=== PATIENT | male | born 1975 | race Caucasian/White ===

== ENCOUNTER 2025-04-20 10:24 | Emergency (ER) | payer MEDICAID, SELFPAY ==
[2025-04-20 10:25] VITALS: BMI 43.8
[2025-04-20 11:12] VITALS: BP 148/77; PULSE 84; RESP 17; TEMP 36.8; O2SAT 99
--- NOTE | 2025-04-20 11:23 | XR_ITS ---
EXAMINATION: Left ankle 2 views TECHNIQUE: AP lateral left ankle 2 views Date and time: April 20, 2025, 11:33 a.m. INDICATIONS: Left ankle injury 10 years ago persistent pain FINDINGS: Moderate osteoarthritis tibiotalar joint No acute fracture Ossification in the Achilles insertion 4 mm plantar bony calcaneal spur Moderate osteoarthritis tarsal joints IMPRESSION: Moderate osteoarthritis No acute fracture
--- NOTE | 2025-04-20 11:24 | EDNOTE_ITS ---
ED Extremity Problem RME/HPI General Chief complaint: Extremity Problem,Nontraumatic Stated complaint: LEFT LEG SWELLING AND PAIN, SENT FOR ULTRASOUND Time Seen by Provider: 04/20/25 11:12 Arrival date/time: 04/20/25 10:24 50-year-old male patient with significant history of peripheral arterial disease, was sent to us by PCP for evaluation regarding request for ultrasound bilateral lower extremity to rule out arterial occlusion and rule out DVT. Patient was seen by PCP 2 days ago, and no further workup was done. Patient is pending referral to specialist. According to the patient it takes forever for him to get an ultrasound to the lower extremity. Patient is requesting ultrasound of the lower extremity and ordered it today. Currently patient is complaining of bilateral lower extremity swelling which is been ongoing for several weeks, and on and off discoloration on discomfort. Patient denies any chest pain denies any fever denies any wounds to the leg. Currently taking Lasix. Related Data Previous Rx's ?Medication ?Instructions ?Recorded cephalexin 500 mg capsule 500 mg PO QID #28 caps 09/10 ibuprofen 800 mg tablet 800 mg PO Q8H PRN pain #20 t abs 09/10/22 Allergies Allergy/AdvReac Type Severity Reaction Status Date / Time No Known Allergies Allergy Verified 04/20/25 10:25 Review of Systems Review of Systems Narrative Review of Systems: Review of system reviewed and within normal limits except mentioned in HPI ED Exam Narrative Physical exam: VITAL SIGNS: Reviewed. GENERAL APPEARANCE: Alert and interactive, follows commands, no acute distress, HEAD AND FACE: Non-traumatic. ENT: PERRL, pink conjunctivitis, eyelid no trauma, Mucous membrane moist. NECK: Supple, nontender, no nuchal rigidity. CHEST: No tenderness, no crepitus, no paradoxical movement, no retractions. LUNGS: Clear, well ventilated, symmetric, no rales, no wheezing, no ronchi, no stridor, good breath sounds bilaterally. HEART: Regular rate, regular rhythm, no murmur, no gallops. ABDOMEN: Soft, positive bowel sounds, nondistended, no guarding, nontender, no rebound, no masses, RECTAL: Deferred. GENITAL: Deferred. NEUROLOGICAL: Gross motor function intact sensory function intact, Appropriate for age. MUSCULOSKELETAL: low back nontender, full range of motion. EXTREMITIES: Bilateral lower extremity swelling, with chronic skin discoloration, capillary refill is sluggish, no skin breakdown, bilateral d orsalis pedis and posterior tibialis pulses barely palpable. Nontender, full range of motion. SKIN: Color pink, dry, no rash, no lacerations, no abrasions, no contusions. LYMPHATICS: Deferred. Course Quality Measures none Orders Category Date Time Status XR ankle LT 2V Stat Exams 04/20/25 11:23 Completed Vital Signs Vital signs: Vital Signs Temperature 98.2 F 04/20/25 11:12 Pulse Rate 84 04/20/25 11:12 Respiratory Rate 17 04/20/25 11:12 Blood Pressure 148/77 H 04/20/25 11:12 Pulse Oximetry (%) 99 04/20/25 11:12 Oxygen Delivery Method Room Air 04/20/25 11:12 Extremity Problem MDM Narrative MDM Narrative:: 50-year-old male patient with significant history of peripheral arterial disease, was sent to us by PCP for evaluation regarding request for ultrasound bilateral lower extremity to rule out arterial occlusion and rule out DVT. Patient was seen by PCP 2 days ago, and no further workup was done. Patient is pending referral to specialist. According to the patient it takes forever for him to get an ultrasound to the lower extremity. Patient is requesting ultrasound of the lower extremity and ordered it today. Currently patient is complaining of bilateral lower extremity swelling which is been ongoing for several weeks, and on and off discoloration on discomfort. Patient denies any chest pain denies any fever denies any wounds to the leg. Currently taking Lasix. 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 Patient did not have the ultrasound done due to living AGAINST MEDICAL ADVICE. Patient data External records reviewed:: None Clinical information provided by:: patient and family Social determinants that could affect healthcare access:: none Patient has the following chronic illnesses:: History of chronic bilateral lower leg swelling How is presenting disease/condition affected by chronic disease/condition?: exacerbated by Evaluation data The following diagnostics were reviewed and interpreted by me:: radiology exam(s) Lab and/or radiology exams considered but not ordered:: None Interpretation Summary: See above Medications / Prescriptions Medications or Prescriptions considered but not ordered:: None Medication administrations:: None Consultations Consultation(s) initiated? (list below): No Diagnosis Extremity Problem Differential Diagnosis: cellulitis, lower extremity edema and deep vein thrombosis of lower extremity Most likely diagnosis given after review of the tests above:: Lower leg swelling Admission Indicated Admission indicated?: not indicated Explain why admission is indicated or not indicated:: Pt has normal mental status and adequate capacity to make medical decisions. Oriented x 4. The patient refuses evaluation and treatment and wants to be discharged. The risks have been explained to the patient, including progression of possible worsening of current disease, worsening illness, chronic pain, permanent disability and . The benefits of evaluation and treatment have also been explained, including the availability and proximity of nurses, physicians, monitoring, diagnostic testing, and treatments. The patient was able to understand and state the risks and benefits of AMA.Patient had the opportunity to ask questions about their medical condition. He left hospital against medical advice. Admission Request Was there a request for admission?: No Disposition Plan Disposition Plan: other (specify) Discharge Plan Plan Patient Disposition: Left Against Medical Advice Prescriptions/Referrals Prescriptions/Med Rec: No Action cephalexin 500 mg capsule 500 mg PO QID Qty: 28 0RF ibuprofen 800 mg tablet 800 mg PO Q8H PRN (Reason: pain) Qty: 20 0RF Referrals: Bishop Last MD [Primary Care Provider, Family Practice] - In 1 week Problem List Clinical Impression: Leg swelling Patient/Caregiver Discharge Instructions Print Language: [place]ian
--- NOTE | 2025-04-20 13:21 | PC.NURSE ---
CALLED PATIENT IN THE LOBBY AND OUTSIDE, NO ANSWER RECIEVED.
--- NOTE | 2025-04-20 13:59 | PC.NURSE ---
CALLED AT PATIENT IN THE LOBBY AND OUTSIDE, NO ANSWER RECEIVED.
--- NOTE | 2025-04-20 14:16 | PC.NURSE ---
CALLED PATIENT IN THE LOBBY AND OUTSIDE, NO ANSWER RECEIVED.
== END 2025-04-20 14:17 | disposition left against medical advice (07) ==
PROVIDERS: Emergency Provider Family Medicine; PCP Family Medicine
DX: M79.89 Other specified soft tissue disorders (principal); Z53.29 Procedure and treatment not carried out because of patient's decision for other reasons
CPT/HCPCS: 73600; 99282